=== PATIENT | male | born 1940 | race Caucasian/White ===

== ENCOUNTER 2018-01-14 13:17 | Emergency (ER) | payer BC, MEDICARE ==
[2018-01-14] MEDS ORDERED: KETOROLAC TROMETHAMINE INJ/PF 30 MG/1 ML SDV IV ONE (14:27)
[2018-01-14] MEDS ORDERED: ONDANSETRON HCL INJ/PF 4 MG/2 ML SDV IV ONE (14:27)
--- NOTE | 2018-01-14 14:28 | ER Document Report ---
ED General - General Chief Complaint: Flank Pain Stated Complaint: ABDOMINAL PAIN Time Seen by Provider: 01/14/18 14:12 Notes: 77-year-old male with history of kidney stones presents with right flank pain, nausea and vomiting. Sudden onset earlier today. Radiates down into the testicles. Had a 7 mm stone on the left recently removed. Denies any fever, chills, sweats. No significant other symptoms. Pain is located on the right flank and radiating down to the right lower abdomen. TRAVEL OUTSIDE OF THE [place] IN LAST 30 DAYS: No - HPI Onset: Just prior to arrival Onset/Duration: Sudden - Related Data Allergies/Adverse Reactions: metoprolol Allergy (Verified 01/14/18 13:25) moxifloxacin [From Avelox] Allergy (Verified 01/14/18 13:25) ofloxacin [From Floxin] Allergy (Verified 01/14/18 13:25) Quinolones Allergy (Verified 01/14/18 13:25) Sulfa (Sulfonamide Antibiotics) Allergy (Verified 01/14/18 13:25) sormotelol fumarate Allergy (Uncoded 01/14/18 13:25) Past Medical History - General Information source: Patient - Social History Smoking Status: Former Smoker Chew tobacco use (# tins/day): No Frequency of alcohol use: None Drug Abuse: None Lives with: Spouse/Significant other Family History: Reviewed & Not Pertinent Patient has suicidal ideation: No Patient has homicidal ideation: No Pulmonary Medical History: Reports: Hx COPD Endocrine Medical History: Reports: Hx Diabetes Mellitus Type 2 Renal/ Medical History: Denies: Hx Peritoneal Dialysis Past Surgical History: Reports: Hx Urinary Tract Surgery - prostate surgery Review of Systems - Review of Systems Constitutional: No symptoms reported EENT: No symptoms reported Cardiovascular: No symptoms reported Respiratory: Cough. denies: Short of breath, Wheezing Gastrointestinal: Abdominal pain, Nausea, Vomiting Genitourinary: See HPI, Flank pain. denies: Burning, Dysuria, Discharge Male Genitourinary: No symptoms reported Musculoskeletal: No symptoms reported Skin: No symptoms reported Hematologic/Lymphatic: No symptoms reported Neurological/Psychological: No symptoms reported Physical Exam - Vital signs Vitals: Temp Pulse Resp BP Pulse Ox 98.1 F 68 24 H 177/74 H 98 01/14/18 13:21 01/14/18 13:21 01/14/18 13:21 01/14/18 13:21 01/14/18 13:21 Interpretation: Normal - General General appearance: Appears well, Alert - HEENT Head: Normocephalic, Atraumatic Eyes: Normal Pupils: PERRL - Respiratory Respiratory status: No respiratory distress Chest status: Nontender Breath sounds: Normal Chest palpation: Normal - Cardiovascular Rhythm: Regular Heart sounds: Normal auscultation Murmur: No - Abdominal Inspection: Normal Distension: No distension Bowel sounds: Normal Tenderness: Nontender Organomegaly: No organomegaly - Back Back: Normal, CVA tenderness, Other - Mild CVA tenderness on the right - Extremities General upper extremity: Normal inspection, Nontender, Normal color, Normal ROM , Normal temperature General lower extremity: Normal inspection, Nontender, Normal color, Normal ROM , Normal temperature, Normal weight bearing. No: Enrique's sign - Neurological Neuro grossly intact: Yes Cognition: Normal Orientation: AAOx4 [place] Coma Scale Eye Opening: Spontaneous [place] Coma Scale Verbal: Oriented Paty Coma Scale Motor: Obeys Commands [place] Coma Scale Total: 15 Speech: Normal Motor strength normal: LUE, RUE, LLE, RLE Sensory: Normal - Psychological Associated symptoms: Normal affect, Normal mood - Skin Skin Temperature: Warm Skin Moisture: Dry Skin Color: Normal Course - Re-evaluation Re-evalutation: 01/14/18 14:47 Some patient's history could possibly be a kidney stone. Will get stat UA, blood work, Toradol, CT scan and reassess. 01/14/18 15:40 Patient with 2 obstructing stones on the right. Consulted with urologist Dr. Payne. Will follow as an outpatient if his creatinine is okay if not may need to go in and do an intervention this weekend. Will call the urologist back with the results of the creatinine 01/14/18 16:07 Spoke with a urologist. He will follow-up with the patient on Wednesday morning at 8:00 in the outpatient clinic. - Vital Signs Vital signs: Temp Pulse Resp BP Pulse Ox 98.1 F 75 18 135/88 H 99 01/14/18 13:21 01/14/18 15:36 01/14/18 15:36 01/14/18 15:36 01/14/18 15:36 - Laboratory Result Diagrams: 01/14/18 14:27 01/14/18 14:27 Laboratory results interpreted by me: 01/14/18 01/14/18 01/14/18 14:27 14:27 14:27 WBC 16.8 H RBC 4.33 L RDW 14.6 H Seg Neuts % (Manual) 86 H Lymphocytes % (Manual) 2 L Metamyelocytes % 1 H Myelocytes % 2 H Promyelocytes % 3 H Abs Neuts (Manual) 16.0 H Abs Lymphs (Manual) 0.3 L BUN 30 H Glucose 237 H Calcium 11.1 H Urine Protein 30 H Urine Glucose (UA) 50 H Urine Ketones TRACE H Urine Blood LARGE H Urine Ascorbic Acid 40 H Discharge - Discharge Clinical Impression: Ureterolithiasis Condition: Good Disposition: HOME, SELF-CARE Instructions: Kidney Stone ([facility]) Additional Instructions: Please call the urologist and make an appointment or show up at the office at 8: 00 on Wednesday morning. Continue with all current treatment. Continue with your antibiotics. Pain medication as needed. Prescriptions: Hydrocodone/Acetaminophen [[place] 5-325 mg Tablet] 1 tab PO TID PRN 4 Days #12 tablet PRN Reason: Pain Scale Of 3 Ondansetron HCl [Zofran 4 mg Tablet] 1 - 2 tab PO Q4H PRN #10 tablet PRN Reason: Tamsulosin HCl [Flomax 0.4 mg Cap.sr] 0.4 mg PO DAILY #7 cap.sr.24h Referrals: REGI PAYNE MD [SUN WIGGINS] - 01/17/18 8:00 am
[2018-01-14] MEDS ORDERED: FENTANYL CITRATE INJ/PF 100 MCG/2 ML AMPUL IV PRN (14:57)
[2018-01-14 15:07] LABS: HEMATOCRIT 41.6 % (37.9-51.0); HEMOGLOBIN 13.8 g/dL (13.5-17.0); MEAN CORPUSCULAR HEMOGLOBIN 31.8 pg (27.0-33.4); MEAN CORPUSCULAR VOLUME 96 fl (80-97); PLATELET COUNT 285 10^3/uL (150-450); RED BLOOD COUNT 4.33 10^6/uL (4.35-5.55); RED CELL DISTRIBUTION WIDTH 14.6 % (11.5-14.0); WHITE BLOOD COUNT 16.8 10^3/uL (4.0-10.5)
[2018-01-14 15:19] LABS: APPEARANCE,URINE CLOUDY; BILIRUBIN,URINE NEGATIVE (NEGATIVE); CALCIUM OXALATE CRYSTALS,URINE MODERATE /HPF; COLOR,URINE YELLOW; GLUCOSE, URINE 50 mg/dL (NEGATIVE); KETONES,URINE TRACE mg/dL (NEGATIVE); LEUKOCYTE ESTERASE,URINE NEGATIVE (NEGATIVE); NITRITE,URINE NEGATIVE (NEGATIVE); PROTEIN,URINE 30 mg/dL (NEGATIVE); URINE SPECIFIC GRAVITY 1.023; UROBILINOGEN,URINE NEGATIVE mg/dL (<2.0)
[2018-01-14] MEDS ORDERED: TAMSULOSIN HCL 0.4 MG CAP.SR.24H PO ONE (15:27)
--- NOTE | 2018-01-14 15:29 | RADIOLOGY REPORT (SQ) ---
EXAM DESCRIPTION: CT ABD/PELVIS NO ORAL OR IV COMPLETED DATE/TIME: 01/14/2018 3:11 pm REASON FOR STUDY: right flank pain COMPARISON: None. TECHNIQUE: CT scan of the abdomen and pelvis performed without intravenous or oral contrast. Images reviewed with lung, soft tissue, and bone windows. Reconstructed coronal and sagittal MPR images revi ewed. All images stored on PACS. All CT scanners at this facility use dose modulation, iterative reconstruction, and/or weight based d osing when appropriate to reduce radiation dose to as low as reasonably achievable (ALARA). [facility]: Dose Right [facility]: CareDose [facility]: Dose Right [facility]: Teradose 4D [facility]: Smart [employer] Network RADIATION DOSE: CT Rad equipment meets quality standard of care and radiation dose reduction techniq ues were employed. CTDIvol: 8.2 mGy. DLP: 461 mGy-cm.mGy. LIMITATIONS: None. FINDINGS: LOWER CHEST: No significant findings. No nodules or infiltrates. NON-CONTRASTED LIVER, SPLEEN, ADRENALS: Evaluation limited by lack of IV contrast. No identified sign ificant masses. PANCREAS: No masses. No peripancreatic inflammatory changes. GALLBLADDER: No identified stones by CT criteria. No inflammatory changes to suggest cholecystitis. RIGHT KIDNEY AND URETER: No suspicious masses. Assessment limited by lack of IV contrast. Tiny nono bstructing renal calculi are identified. Obstructing 6 mm in diameter calculus is identified in the proximal right ureter best seen on image number 45. A 2nd obstructing calculus is identified just pr oximal to the uterovesical junction best seen on image number 83 measuring 3.6 mm in diameters. Ther e is hydronephrosis of the right kidney and dilatation of the right ureter proximal to the level of t he obstructing calculus. LEFT KIDNEY AND URETER: No suspicious masses. Assessment limited by lack of IV contrast. Tiny nonob structing left renal calculi are identified. No hydronephrosis or hydroureter. AORTA AND RETROPERITONEUM: No aneurysm. No retroperitoneal masses or adenopathy. BOWEL AND PERITONEAL CAVITY: No obvious masses or inflammatory changes. No free fluid. APPENDIX: Normal. PELVIS, BLADDER, AND ABDOMINAL WALL:No abnormal masses. No free fluid. Bladder normal. Multiple surg ical clips are identified presumably related to a prostatectomy. BONES: No significant findings. OTHER: No other significant finding. IMPRESSION: Proximal and distal obstructing calculi on the right as noted above. Tiny bilateral non obstructing renal calculi are identified. Other findings as noted above COMMENT: Quality ID # [id number]: Final reports with documentation of one or more dose reduction techniques (e.g., Automated exposure control, adjustment of the mA and/or kV according to patient size, use of iterative reconstruction technique) TECHNICAL DOCUMENTATION: JOB ID: [id number] [employer]- All Rights Reserved Reading location - IP/workstation name: [email or web address] [id number]
[2018-01-14 15:30] LABS: ABSOLUTE LYMPHOCYTES# (MANUAL) 0.3 10^3/uL (0.5-4.7); ABSOLUTE MONOCYTES # (MANUAL) 0.5 10^3/uL (0.1-1.4); BAND NEUTROPHILS % (MANUAL) 3 % (3-5); BASOPHILS % (MANUAL) 0 % (0-2); EOSINOPHILS % (MANUAL) 0 % (0-6); LYMPHOCYTES % (MANUAL) 2 % (13-45); METAMYELOCYTES % (MANUAL) 1 % (0); MONOCYTES % (MANUAL) 3 % (3-13); MYELOCYTES % (MANUAL) 2 % (0); PROMYELOCYTES % (MANUAL) 3 % (0); SEGMENTED NEUTROPHILS % (MAN) 86 % (42-78); TOTAL CELLS COUNTED 100
[2018-01-14 15:31] LABS: ANISOCYTOSIS SLIGHT; OVALOCYTES SLIGHT; PLATELET COMMENT ADEQUATE; POIKILOCYTOSIS SLIGHT; POLYCHROMASIA SLIGHT
[2018-01-14 15:38] VITALS: BP 135/88
[2018-01-14 15:50] LABS: ALANINE AMINOTRANSFERASE 32 U/L (21-72); ALBUMIN 4.2 g/dL (3.5-5.0); ALKALINE PHOSPHATASE 70 U/L (38-126); ANION GAP 13 (5-19); ASPARTATE AMINO TRANSFERASE 23 U/L (17-59); BILIRUBIN,DIRECT 0.4 mg/dL (0.0-0.4); BILIRUBIN,TOTAL 0.5 mg/dL (0.2-1.3); BLOOD UREA NITROGEN 30 mg/dL (7-20); CALCIUM 11.1 mg/dL (8.4-10.2); CARBON DIOXIDE 24 mmol/L (22-30); CHLORIDE 102 mmol/L (98-107); GLUCOSE 237 mg/dL (75-110); LIPASE 245.2 U/L (23-300); SODIUM 138.8 mmol/L (137-145); TOTAL PROTEIN 6.6 g/dL (6.3-8.2)
[2018-01-18 08:20] LABS: PATH REVIEW PATHOLOGIST REVIEWED
== END 2018-01-14 16:11 | disposition home or self-care (01) ==
LOC: EDSEX 13:17 → EDBD 13:17 → ER 13:17
DX: N20.1 Calculus of ureter (principal); R10.9 Unspecified abdominal pain; R11.2 Nausea with vomiting, unspecified; J44.9 Chronic obstructive pulmonary disease, unspecified; E11.9 Type 2 diabetes mellitus without complications; Z87.442 Personal history of urinary calculi; Z88.2 Allergy status to sulfonamides; Z88.3 Allergy status to other anti-infective agents
CPT/HCPCS: 99284; 96374; 96375; 36415; 83690; 85025; 80053; 81001; 74176; J3010; J1885; A9270; J2405

== ENCOUNTER 2019-01-12 14:02 | Emergency (ER) | payer MEDICARE ==
--- NOTE | 2019-01-12 15:13 | ER Document Report ---
ED Medical Screen (RME) - General Mode of Arrival: Ambulatory Information source: Patient TRAVEL OUTSIDE OF THE [place] IN LAST 30 DAYS: No <RASHEED MARTINES - Last Filed: 01/12/19 15:13> <JHON BROWN - Last Filed: 01/12/19 17:40> - General Chief Complaint: Weakness Stated Complaint: WEAKNESS Time Seen by Provider: 01/12/19 15:08 Notes: Patient is an 78-year-old male with a history of COPD, high cholesterol, congestive heart failure, type 2 diabetes who presents to the emergency department for generalized weakness. at the bedside states that they are visiting from [place] and patient has had generalized weakness and fatigue for the past 2 weeks. The patient does have history of anemia 1 year ago where he required iron and blood transfusion. states that at that time they were unable to find the source of bleeding. Patient has denied rectal bleeding or dark stools. Patient states that he has had diarrhea a few times per week but this is not new as he was told he had GI issues in the past. Patient has a decreased appetite. He did call his primary care physician in [place] earlier today who recommended he go to the emergency department for further evaluation. (JHON BROWN) - Related Data Allergies/Adverse Reactions: metoprolol Allergy (Verified 01/12/19 14:03) moxifloxacin [From Avelox] Allergy (Verified 01/12/19 14:03) ofloxacin [From Floxin] Allergy (Verified 01/12/19 14:03) Quinolones Allergy (Verified 01/12/19 14:03) Sulfa (Sulfonamide Antibiotics) Allergy (Verified 01/12/19 14:03) sormotelol fumarate Allergy (Uncoded 01/12/19 14:03) Past Medical History Pulmonary Medical History: Reports: Hx COPD Endocrine Medical History: Reports: Hx Diabetes Mellitus Type 2 Renal/ Medical History: Denies: Hx Peritoneal Dialysis Past Surgical History: Reports: Hx Urinary Tract Surgery - prostate surgery <RASHEED MARTINES - Last Filed: 01/12/19 15:13> - General Information source: Patient - Social History Cigarette use (# per day): No Chew tobacco use (# tins/day): No Frequency of alcohol use: None Drug Abuse: None Lives with: Spouse/Significant other Family history: None - Past Medical History Cardiac Medical History: Reports: Hx Atrial Fibrillation, Hx Congestive Heart Failure, Hx Hypercholesterolemia Pulmonary Medical History: Reports: Hx COPD EENT Medical History: Reports: None Neurological Medical History: Reports: None Renal/ Medical History: Reports: None Malignancy Medical History: Reports None GI Medical History: Reports: Other - Diarrhea Musculoskeltal Medical History: Reports None Skin Medical History: Reports None Psychiatric Medical History: Reports: None Traumatic Medical History: Reports: None Infectious Medical History: Reports: None <JHON BROWN - Last Filed: 01/12/19 17:40> Review of Systems - Review of Systems Constitutional: See HPI EENT: No symptoms reported Cardiovascular: No symptoms reported Respiratory: No symptoms reported Gastrointestinal: See HPI Genitourinary: No symptoms reported Male Genitourinary: No symptoms reported Musculoskeletal: No symptoms reported Skin: No symptoms reported Hematologic/Lymphatic: No symptoms reported Neurological/Psychological: No symptoms reported <JHON BROWN - Last Filed: 01/12/19 17:40> Physical Exam - Vital signs Interpretation: Hypertensive, Tachycardic <JHON BROWN - Last Filed: 01/12/19 17:40> - Vital signs Vitals: Temp Pulse Resp BP Pulse Ox 98.6 F 114 H 22 H 150/57 H 94 01/12/19 14:07 01/12/19 14:07 01/12/19 14:07 01/12/19 14:07 01/12/19 14:07 - Notes Notes: GENERAL: Well-appearing, well-nourished and in no acute distress. HEAD: Atraumatic, normocephalic. EYES: Pupils equal round and reactive to light, extraocular movements intact, sclera anicteric, conjunctiva are normal. ENT: Nares patent, oropharynx clear without exudates. Moist mucous membranes. NECK: Normal range of motion, supple without lymphadenopathy or JVD. LUNGS: Breath sounds clear to auscultation bilaterally and equal. No wheezes rales or rhonchi. HEART: Regular rate and rhythm without murmurs, rubs or gallops. ABDOMEN: Soft, round, nontender, hyperactive bowel sounds. No guarding, no rebound. No masses appreciated. BACK: No cervical, thoracic, lumbar midline tenderness. No saddle anesthesia, normal distal neurovascular exam. GENITOURINARY: Deferred. EXTREMITIES: Normal range of motion, no pitting or edema. No clubbing or cyanosis. NEUROLOGICAL: Cranial nerves II through XII grossly intact. Normal speech, normal gait. PSYCH: Normal mood, normal affect. SKIN: Warm, Dry, normal turgor, no rashes or lesions noted. (JHON BROWN) Course - Laboratory Result Diagrams: 01/12/19 15:24 01/12/19 15:24 <JHON BROWN - Last Filed: 01/12/19 17:40> - Re-evaluation Re-evalutation: 01/12/19 17:32 Upon evaluation patient is resting comfortably on stretcher, no acute distress. Informed the patient and family that his blood glucose is in the 500's. He states that he has been taking his Metformin and Glipizide as prescribed and two days ago his blood sugar was in the 100's. Will obtain additional lab work including venous blood gas and urinalysis. Will give IVF's slowly. (JHON BROWN) - Vital Signs Vital signs: Temp Pulse Resp BP Pulse Ox 98.6 F 114 H 22 H 150/57 H 94 01/12/19 14:07 01/12/19 14:07 01/12/19 14:07 01/12/19 14:07 01/12/19 14:07 - Laboratory Laboratory results interpreted by me: 01/12/19 01/12/19 15:24 15:24 RBC 3.92 L Hgb 11.9 L Hct 36.1 L RDW 14.9 H Plt Count 141 L Band Neutrophils % 2 L Metamyelocytes % 1 H Myelocytes % 2 H Sodium 133.2 L Chloride 95 L Est GFR (Non-Af Amer) 58 L Glucose 508 H* Total Protein 5.9 L 01/12/19 17:34 Glucose elevated. Corrected Sodium with hyperglycemia is 140. (JHON DIOP)
--- NOTE | 2019-01-12 15:49 | RADIOLOGY REPORT (SQ) ---
EXAM DESCRIPTION: CHEST SINGLE VIEW COMPLETED DATE/TIME: 01/12/2019 3:40 pm REASON FOR STUDY: fatigue, shortness of breath COMPARISON: None. EXAM PARAMETERS: NUMBER OF VIEWS: One view. TECHNIQUE: Single frontal radiographic view of the chest acquired. RADIATION DOSE: NA LIMITATIONS: None. FINDINGS: LUNGS AND PLEURA: No opacities, masses or pneumothorax. No pleural effusion. MEDIASTINUM AND HILAR STRUCTURES: No masses. Contour normal. HEART AND VASCULAR STRUCTURES: Heart normal in size. Normal vasculature. BONES: No acute findings. HARDWARE: None in the chest. OTHER: No other significant finding. IMPRESSION: No acute abnormality of the lungs in frontal projection. TECHNICAL DOCUMENTATION: JOB ID: [id number] [employer]- All Rights Reserved Reading location - IP/workstation name: [email or web address]
[2019-01-12 15:54] LABS: HEMATOCRIT 36.1 % (37.9-51.0); HEMOGLOBIN 11.9 g/dL (13.5-17.0); MEAN CORPUSCULAR HEMOGLOBIN 30.2 pg (27.0-33.4); MEAN CORPUSCULAR HGB CONC 32.9 g/dL (32.0-36.0); MEAN CORPUSCULAR VOLUME 92 fl (80-97); PLATELET COUNT 141 10^3/uL (150-450); RED BLOOD COUNT 3.92 10^6/uL (4.35-5.55); RED CELL DISTRIBUTION WIDTH 14.9 % (11.5-14.0)
[2019-01-12 16:13] LABS: ALANINE AMINOTRANSFERASE 65 U/L (21-72); ALBUMIN 3.5 g/dL (3.5-5.0); ALKALINE PHOSPHATASE 84 U/L (38-126); ANION GAP 12 (5-19); ASPARTATE AMINO TRANSFERASE 28 U/L (17-59); BILIRUBIN,DIRECT 0.3 mg/dL (0.0-0.4); BILIRUBIN,TOTAL 0.6 mg/dL (0.2-1.3); BLOOD UREA NITROGEN 13 mg/dL (7-20); CALCIUM 9.5 mg/dL (8.4-10.2); CARBON DIOXIDE 26 mmol/L (22-30); CHLORIDE 95 mmol/L (98-107); POTASSIUM 3.9 mmol/L (3.6-5.0); SODIUM 133.2 mmol/L (137-145); TOTAL PROTEIN 5.9 g/dL (6.3-8.2)
[2019-01-12 16:21] LABS: GLUCOSE 508 mg/dL (75-110)
[2019-01-12 16:24] LABS: ABSOLUTE LYMPHOCYTES# (MANUAL) 1.1 10^3/uL (0.5-4.7); ABSOLUTE MONOCYTES # (MANUAL) 0.4 10^3/uL (0.1-1.4); ABSOLUTE NEUTROPHILS# (MANUAL) 6.4 10^3/uL (1.7-8.2); BAND NEUTROPHILS % (MANUAL) 2 % (3-5); BASOPHILS % (MANUAL) 1 % (0-2); EOSINOPHILS % (MANUAL) 0 % (0-6); LYMPHOCYTES % (MANUAL) 14 % (13-45); METAMYELOCYTES % (MANUAL) 1 % (0); MONOCYTES % (MANUAL) 5 % (3-13); SEGMENTED NEUTROPHILS % (MAN) 75 % (42-78); TOTAL CELLS COUNTED 100
[2019-01-12 16:25] LABS: PLATELET COMMENT DECREASED
[2019-01-12 16:27] LABS: TOXIC GRANULATION SLIGHT
[2019-01-12 16:29] LABS: ANISOCYTOSIS SLIGHT; POLYCHROMASIA SLIGHT; STOMATOCYTES 1+
[2019-01-12 16:30] LABS: MYELOCYTES % (MANUAL) 2 % (0)
--- NOTE | 2019-01-12 16:51 | EKG REPORT ---
SEVERITY:- ABNORMAL ECG - SINUS RHYTHM RIGHT BUNDLE BRANCH BLOCK LAFB : Confirmed by: Nacho Morton MD 12-Jan-2019 16:51:14
[2019-01-12] MEDS ORDERED: NORMAL SALINE 1000 ML 1,000 ML IV ONE ×2 (17:21→19:32)
[2019-01-12 18:05] LABS: VENOUS BLOOD BASE EXCESS 3.8 mmol/L; VENOUS BLOOD HCO3 28.7 mmol/L (20-32); VENOUS BLOOD PCO2 44.7 mmHg (35-63); VENOUS BLOOD PH 7.43 (7.30-7.42)
--- NOTE | 2019-01-12 18:32 | ER Document Report ---
ED General - General Mode of Arrival: Ambulatory TRAVEL OUTSIDE OF THE [place]. IN LAST 30 DAYS: No <JHON BROWN - Last Filed: 01/12/19 20:17> <IZABELAYUSHCHRIS - Last Filed: 01/12/19 23:57> - General Chief Complaint: Weakness Stated Complaint: WEAKNESS Time Seen by Provider: 01/12/19 15:08 Notes: Patient is an 78-year-old male with a history of COPD, high cholesterol, congestive heart failure, type 2 diabetes who presents to the emergency department for generalized weakness. at the bedside states that they are visiting from [place] and patient has had generalized weakness and fatigue for the past 2 weeks. The patient does have history of anemia 1 year ago where he required iron and blood transfusion. states that at that time they were unable to find the source of bleeding. Patient has denied rectal bleeding or dark stools. Patient states that he has had diarrhea a few times per week but this is not new as he was told he had GI issues in the past. Patient has a decreased appetite. He did call his primary care physician in [place] earlier today who recommended he go to the emergency department for further evaluation. (JHON BROWN) - Related Data Allergies/Adverse Reactions: metoprolol Allergy (Verified 01/12/19 14:03) moxifloxacin [From Avelox] Allergy (Verified 01/12/19 14:03) ofloxacin [From Floxin] Allergy (Verified 01/12/19 14:03) Quinolones Allergy (Verified 01/12/19 14:03) Sulfa (Sulfonamide Antibiotics) Allergy (Verified 01/12/19 14:03) sormotelol fumarate Allergy (Uncoded 01/12/19 14:03) Past Medical History - General Information source: Patient - Social History Smoking Status: Unknown if Ever Smoked Cigarette use (# per day): No Chew tobacco use (# tins/day): No Frequency of alcohol use: None Drug Abuse: None Lives with: Spouse/Significant other Family History: Reviewed & Not Pertinent Patient has suicidal ideation: No Patient has homicidal ideation: No - Past Medical History Cardiac Medical History: Reports: Hx Atrial Fibrillation, Hx Congestive Heart Failure, Hx Hypercholesterolemia Pulmonary Medical History: Reports: Hx COPD EENT Medical History: Reports: None Neurological Medical History: Reports: None Endocrine Medical History: Reports: Hx Diabetes Mellitus Type 2 Renal/ Medical History: Reports: None. Denies: Hx Peritoneal Dialysis Malignancy Medical History: Reports None GI Medical History: Reports: Other - Diarrhea Musculoskeletal Medical History: Reports None Skin Medical History: Reports None Psychiatric Medical History: Reports: None Traumatic Medical History: Reports: None Infectious Medical History: Reports: None Past Surgical History: Reports: Hx Urinary Tract Surgery - prostate surgery <JHON BROWN - Last Filed: 01/12/19 20:17> Physical Exam <JHNO BROWN - Last Filed: 01/12/19 20:17> - Vital signs Vitals: Temp Pulse Resp BP Pulse Ox 98.6 F 114 H 22 H 150/57 H 94 01/12/19 14:07 01/12/19 14:07 01/12/19 14:07 01/12/19 14:07 01/12/19 14:07 - Notes Notes: GENERAL: Well-appearing, well-nourished and in no acute distress. HEAD: Atraumatic, normocephalic. EYES: Pupils equal round and reactive to light, extraocular movements intact, sclera anicteric, conjunctiva are normal. ENT: Nares patent, oropharynx clear without exudates. Moist mucous membranes. NECK: Normal range of motion, supple without lymphadenopathy or JVD. LUNGS: Breath sounds clear to auscultation bilaterally and equal. No wheezes rales or rhonchi. HEART: Regular rate and rhythm without murmurs, rubs or gallops. ABDOMEN: Soft, round, nontender, hyperactive bowel sounds. No guarding, no rebound. No masses appreciated. BACK: No cervical, thoracic, lumbar midline tenderness. No saddle anesthesia, normal distal neurovascular exam. GENITOURINARY: Deferred. EXTREMITIES: Normal range of motion, no pitting or edema. No clubbing or cyanosis. NEUROLOGICAL: Cranial nerves II through XII grossly intact. Normal speech, normal gait. PSYCH: Normal mood, normal affect. SKIN: Warm, Dry, normal turgor, no rashes or lesions noted. (JHON BROWN) Course - Laboratory Result Diagrams: 01/12/19 15:24 01/12/19 15:24 <JHON BROWN - Last Filed: 01/12/19 20:17> - Laboratory Result Diagrams: 01/12/19 15:24 01/12/19 15:24 <CHRIS WELLS - Last Filed: 01/12/19 23:57> - Re-evaluation Re-evalutation: 01/12/19 18:00 Upon evaluation patient is resting comfortably on stretcher, no acute distress. Informed the patient and family that his blood glucose is in the 500's. He states that he has been taking his Metformin and Glipizide as prescribed and two days ago his blood sugar was in the 100's. Will obtain additional lab work including venous blood gas and urinalysis. Will give IVF's. 18:30 Assisted patient to restroom. Urinated without difficulty. 01/12/19 18:46 Repeat blood glucose 463. Did discuss patient case with Dr. Luis who recommends giving two liters of NS and to evaluate after each bolus due to CHF. Will repeat glucose after second liter. states that patient does take 10 mg Prednisone daily for his COPD, he did finish a taper dose one week ago but reports that his blood sugars have been running in the high 100's and has not gone above 200. 01/12/19 19:47 Patient resting comfortably, lungs remains CTA bilaterally, denies shortness of breath. Patient stating that he is ready to go home. Will initiate second liter and recheck blood glucose. 01/12/19 20:17 Bedside report given to Chris Wells PA-C, patient is resting comfortably on stretcher, denies pain, no discharge at this time. 2nd liter of NS running, will recheck glucose after. (JHON RBOWN) 01/12/19 Blood glucose is still downtrending, now in the 340s. Patient has had 2 bags of IV fluids, he is sitting on the edge of the bed, requesting to leave. He looks well. Repeat vital signs are unremarkable. He states he has no symptoms. I did discuss the results with Dr. Luis, patient will be discharged with follow- up instructions and strict return precautions. Patient states satisfaction and agreement with plan. (CHRIS WELLS) - Vital Signs Vital signs: Temp Pulse Resp BP Pulse Ox 98.5 F 83 22 H 95/42 L 97 01/12/19 21:22 01/12/19 21:22 01/12/19 14:07 01/12/19 21:22 01/12/19 21:22 - Laboratory Laboratory results interpreted by me: 01/12/19 01/12/19 01/12/19 15:24 15:24 17:55 RBC 3.92 L Hgb 11.9 L Hct 36.1 L RDW 14.9 H Plt Count 141 L Band Neutrophils % 2 L Metamyelocytes % 1 H Myelocytes % 2 H VBG pH 7.43 H Sodium 133.2 L Chloride 95 L Est GFR (Non-Af Amer) 58 L Glucose 508 H* POC Glucose Total Protein 5.9 L Urine Glucose (UA) 01/12/19 01/12/19 01/12/19 18:02 18:45 19:03 RBC Hgb Hct RDW Plt Count Band Neutrophils % Metamyelocytes % Myelocytes % VBG pH Sodium Chloride Est GFR (Non-Af Amer) Glucose POC Glucose 463 H* 396 H Total Protein Urine Glucose (UA) >=500 H 01/12/19 20:58 RBC Hgb Hct RDW Plt Count Band Neutrophils % Metamyelocytes % Myelocytes % VBG pH Sodium Chloride Est GFR (Non-Af Amer) Glucose POC Glucose 344 H Total Protein Urine Glucose (UA) 01/12/19 18:34 Glucose noted at 508. Hyperglycemia corrected sodium 140. (JHON BROWN) - EKG Interpretation by Me Additional EKG results interpreted by me: 01/12/19 20:22 Patient's EKG shows a sinus rhythm with a rate of 91. Patient does have a right bundle branch block, QTC 517, no ST segment changes in consecutive leads. (JHON BROWN) Discharge <JHON BROWN - Last Filed: 01/12/19 20:17> <CHRIS WELLS - Last Filed: 01/12/19 23:57> - Discharge Clinical Impression: Hyperglycemia without ketosis Condition: Stable Disposition: HOME, SELF-CARE Additional Instructions: Today you were seen in the emergency department for generalized weakness. Your lab work did reveal an elevated blood sugar in the 500's. We have given you IV fluids which have improved your symptoms. Please continue your oral diabetes medications and monitor your blood sugars regularly. Follow up with your primary care physician when you return to [place] as you may need an adjustment in your medications. Keep a blood sugar diary at home so you can show your doctor the readings. Please return to the emergency department for worsening signs or symptoms to include dizziness, chest pain, palpitations, passing out, fever, vomiting, abdominal pain or any other concerning signs or symptoms. Hyperglycemia (High Blood Sugar) You have an abnormally high blood sugar. Not all high blood sugar requires long-term treatment. High blood sugar can be due to medications, , or the stress of illness. (These cases are "borderline diabetes.") If the doctor feels your high blood sugar might resolve with time, you may not require treatment now. You will be scheduled for further evaluation. It's very important that you follow through, to see if the blood sugar returns to normal levels. Uncontrolled high blood sugar leads to early heart disease, strokes, nerve damage, eye damage, and kidney damage. Call the physician if there is faintness, excess sleepiness, or very rapid breathing.
[2019-01-12 19:19] LABS: APPEARANCE,URINE CLEAR; BILIRUBIN,URINE NEGATIVE (NEGATIVE); COLOR,URINE YELLOW; GLUCOSE, URINE >=500 mg/dL (NEGATIVE); KETONES,URINE NEGATIVE (NEGATIVE); LEUKOCYTE ESTERASE,URINE NEGATIVE (NEGATIVE); NITRITE,URINE NEGATIVE (NEGATIVE); PROTEIN,URINE NEGATIVE (NEGATIVE); UROBILINOGEN,URINE NEGATIVE mg/dL (<2.0)
[2019-01-12 21:28] VITALS: BP 95/42
[2019-01-13 10:31] LABS: PATH REVIEW PATHOLOGIST REVIEWED
== END 2019-01-12 21:28 | disposition home or self-care (01) ==
LOC: ER 14:02
DX: E11.65 Type 2 diabetes mellitus with hyperglycemia (principal); R53.1 Weakness; J44.9 Chronic obstructive pulmonary disease, unspecified; E78.00 Pure hypercholesterolemia, unspecified; I50.9 Heart failure, unspecified; I48.91 Unspecified atrial fibrillation; Z88.2 Allergy status to sulfonamides; Z88.3 Allergy status to other anti-infective agents
CPT/HCPCS: 93005; 99285; 86900; 86901; 36415; 86850; 82962; 85025; 80053; 81001; 82803; 83880; 71045; 93010; J7030

== ENCOUNTER 2019-01-30 16:40 | Observation (INO) | payer MEDICARE ==
[2019-01-30] MEDS ORDERED: NORMAL SALINE 1000 ML 1,000 ML IV ONE (16:51)
[2019-01-30] MEDS ORDERED: ACETAMINOPHEN 325 MG TABLET PO ONE (17:16)
--- NOTE | 2019-01-30 17:16 | ER Document Report ---
ED General - General Chief Complaint: Altered Mental Status Stated Complaint: ALTERED MENTAL STATUS Time Seen by Provider: 01/30/19 16:51 TRAVEL OUTSIDE OF THE [place] IN LAST 30 DAYS: No - HPI Notes: Patient is a 78-year-old male that presents to the emergency department for chief complaint of altered mental status and fever. Patient's states that around noon today he started to complain of feeling ill. Patient was less responsive and appeared more tired. Patient's said that he seemed to be getting more confused. Patient was found to have a fever by EMS. He has not had any medication today for his fever. Patient's states he has been out of the hospital for about a week since an admission at [facility] for hyperglycemia. She states he was given an antibiotic and prednisone for his COPD. He is not currently on antibiotics but does take 10 mg of prednisone daily. Patient was reportedly normal yesterday and this morning. He denies any chest pain but does state that he is coughing. He denies any abdominal pain or diarrhea. Patient had one episode of emesis with EMS but de nies current nausea. He denies any change in urinary habits. Patient's states that they have been in town since December and were planning on returning home to [place] today. All of patient's doctors are back in [place]. Past Medical History: COPD, diabetes, hyperlipidemia Past Surgical History: Reviewed in chart Social History: Denies tobacco and alcohol use Family History: Reviewed and noncontributory for presenting illness Allergies: Reviewed, see documented allergy list. REVIEW OF SYSTEMS: CONSTITUTIONAL : fever chills No diaphoresis No recent illness EENT: No vision changes No congestion No sore throat CARDIOVASCULAR: No chest pain No palpitations RESPIRATORY: No shortness of breath cough No difficulty breathing GASTROINTESTINAL: No abdominal pain No nausea No vomiting No diarrhea GENITOURINARY: No dysuria No hematuria No difficulty urinating MUSCULOSKELETAL: No back pain No leg pain No arm pain SKIN: No rashes No lesions LYMPHATIC: No swollen, enlarged glands. NEUROLOGICAL: No lightheadedness No headache No weakness No paresthesias confusion PSYCHIATRIC: No anxiety No depression PHYSICAL EXAMINATION: Vital signs reviewed, nursing noted reviewed. GENERAL: Somnolent, ill-appearing, well-nourished HEAD: Atraumatic, normocephalic. EYES: Eyes appear normal, extraocular movements intact, sclera anicteric, conjunctiva are normal. ENT: nares patent, oropharynx clear without exudates. Dry mucous membranes. NECK: Normal range of motion, supple without lymphadenopathy LUNGS: Breath sounds clear to auscultation bilaterally and equal. No wheezes rales or rhonchi. HEART: Tachycardic rate and regular rhythm. systolic murmur. +2 pretibial pitting edema bilaterally ABDOMEN: Soft, nontender, normoactive bowel sounds. No rebound, guarding, or rigidity. No masses appreciated. EXTREMITIES: Nontender, good range of motion, and symmetric NEUROLOGICAL: Oriented to person, place, and situation. Disoriented to time. Moves all extremities spontaneously Motor and sensory grossly intact on exam. PSYCH: Normal mood, normal affect. SKIN: Warm, Dry, normal turgor, no rashes or lesions noted on exposed skin - Related Data Allergies/Adverse Reactions: metoprolol Allergy (Verified 01/12/19 14:03) moxifloxacin [From Avelox] Allergy (Verified 01/12/19 14:03) ofloxacin [From Floxin] Allergy (Verified 01/12/19 14:03) Quinolones Allergy (Verified 01/12/19 14:03) Sulfa (Sulfonamide Antibiotics) Allergy (Verified 01/12/19 14:03) sormotelol fumarate Allergy (Uncoded 01/12/19 14:03) Past Medical History - Social History Smoking Status: Never Smoker Family History: Reviewed & Not Pertinent - Past Medical History Cardiac Medical History: Reports: Hx Atrial Fibrillation, Hx Congestive Heart Failure, Hx Hypercholesterolemia Pulmonary Medical History: Reports: Hx COPD Endocrine Medical History: Reports: Hx Diabetes Mellitus Type 2 Renal/ Medical History: Denies: Hx Peritoneal Dialysis Past Surgical History: Reports: Hx Urinary Tract Surgery - prostate surgery Physical Exam - Vital signs Vitals: Pulse Ox 92 01/30/19 16:49 Course - Re-evaluation Re-evalutation: 01/30/19 18:00 Patient's lab work does show a leukocytosis and elevated lactate at 2.1. His urinalysis and chest x-ray are negative for acute infection. patient was hypoglycemic at presentation and has tolerated drinking orange juice. His confusion has improved since improving his hypoglycemia. Patient source of infection is not currently identified. He has an abdominal exam that is benign with no focal tenderness. He has not had any diarrhea and only had one episode of emesis while in transit with EMS. Patient was given broad-spectrum antibiotics. He did receive 1 L of IV fluids. He has a history of congestive heart failure and aggressive hydration will be performed as tolerated with patient's respiratory status. He does have a heart murmur but is unclear if this is new or chronic for this patient. Blood cultures have been obtained. Urine culture has been ordered. Patient will be admitted to the hospital for further medical management. Care discussed with Dr. Rader who accepts admission. Laboratory 01/30/19 01/30/19 01/30/19 17:02 17:02 17:02 WBC 12.7 H RBC 3.61 L Hgb 10.8 L Hct 32.8 L MCV 91 MCH 30.0 MCHC 33.0 RDW 16.3 H Plt Count 175 Seg Neutrophils % 63.8 Lymphocytes % 26.0 Monocytes % 9.1 Eosinophils % 0.2 Basophils % 0.9 Absolute Neutrophils 8.1 Absolute Lymphocytes 3.3 Absolute Monocytes 1.2 Absolute Eosinophils 0.0 Absolute Basophils 0.1 PT 13.1 INR 0.94 VBG pH VBG pCO2 VBG HCO3 VBG Base Excess Sodium 136.4 L Potassium 3.3 L Chloride 103 Carbon Dioxide 28 Anion Gap 5 BUN 13 Creatinine 0.92 Est GFR ( Amer) > 60 Est GFR (Non-Af Amer) > 60 Glucose 56 L POC Glucose Lactic Acid Calcium 7.9 L Total Bilirubin 0.4 Direct Bilirubin 0.2 Neonat Total Bilirubin Not Reportable Neonat Direct Bilirubin Not Reportable Neonat Indirect Bili Not Reportable AST 26 ALT 41 Alkaline Phosphatase 70 Total Protein 5.2 L Albumin 2.8 L Urine Color Urine Appearance Urine pH Ur Specific Kinde Urine Protein Urine Glucose (UA) Urine Ketones Urine Blood Urine Nitrite Urine Bilirubin Urine Urobilinogen Ur Leukocyte Esterase Urine WBC (Auto) Urine RBC (Auto) U Hyaline Cast (Auto) Squamous Epi Cells Auto Urine Mucus (Auto) Urine Ascorbic Acid 01/30/19 01/30/19 01/30/19 17:02 17:02 17:12 WBC RBC Hgb Hct MCV MCH MCHC RDW Plt Count Seg Neutrophils % Lymphocytes % Monocytes % Eosinophils % Basophils % Absolute Neutrophils Absolute Lymphocytes Absolute Monocytes Absolute Eosinophils Absolute Basophils PT INR VBG pH 7.53 H VBG pCO2 33.2 L VBG HCO3 27.1 VBG Base Excess 4.6 Sodium Potassium Chloride Carbon Dioxide Anion Gap BUN Creatinine Est GFR ( Amer) Est GFR (Non-Af Amer) Glucose POC Glucose Lactic Acid 2.1 Calcium Total Bilirubin Direct Bilirubin Neonat Total Bilirubin Neonat Direct Bilirubin Neonat Indirect Bili AST ALT Alkaline Phosphatase Total Protein Albumin Urine Color YELLOW Urine Appearance CLEAR Urine pH 6.0 Ur Specific Kinde 1.010 Urine Protein NEGATIVE Urine Glucose (UA) NEGATIVE Urine Ketones NEGATIVE Urine Blood NEGATIVE Urine Nitrite NEGATIVE Urine Bilirubin NEGATIVE Urine Urobilinogen NEGATIVE Ur Leukocyte Esterase NEGATIVE Urine WBC (Auto) 1 Urine RBC (Auto) 1 U Hyaline Cast (Auto) 1 Squamous Epi Cells Auto <1 Urine Mucus (Auto) RARE Urine Ascorbic Acid NEGATIVE 01/30/19 17:46 WBC RBC Hgb Hct MCV MCH MCHC RDW Plt Count Seg Neutrophils % Lymphocytes % Monocytes % Eosinophils % Basophils % Absolute Neutrophils Absolute Lymphocytes Absolute Monocytes Absolute Eosinophils Absolute Basophils PT INR VBG pH VBG pCO2 VBG HCO3 VBG Base Excess Sodium Potassium Chloride Carbon Dioxide Anion Gap BUN Creatinine Est GFR ( Amer) Est GFR (Non-Af Amer) Glucose POC Glucose 62 L Lactic Acid Calcium Total Bilirubin Direct Bilirubin Neonat Total Bilirubin Neonat Direct Bilirubin Neonat Indirect Bili AST ALT Alkaline Phosphatase Total Protein Albumin Urine Color Urine Appearance Urine pH Ur Specific Kinde Urine Protein Urine Glucose (UA) Urine Ketones Urine Blood Urine Nitrite Urine Bilirubin Urine Urobilinogen Ur Leukocyte Esterase Urine WBC (Auto) Urine RBC (Auto) U Hyaline Cast (Auto) Squamous Epi Cells Auto Urine Mucus (Auto) Urine Ascorbic Acid Chest X-Ray 01/30/19 16:51 IMPRESSION: NO ACUTE FINDINGS. - Vital Signs Vital signs: Temp Pulse Resp BP Pulse Ox 102.0 F H 26 H 117/56 L 92 01/30/19 17:26 01/30/19 17:01 01/30/19 17:01 01/30/19 17:01 - Laboratory Result Diagrams: 01/30/19 17:02 01/30/19 17:02 Laboratory results interpreted by me: 01/30/19 01/30/19 01/30/19 17:02 17:02 17:02 WBC 12.7 H RBC 3.61 L Hgb 10.8 L Hct 32.8 L RDW 16.3 H VBG pH 7.53 H VBG pCO2 33.2 L Sodium 136.4 L Potassium 3.3 L Glucose 56 L POC Glucose Calcium 7.9 L Total Protein 5.2 L Albumin 2.8 L 01/30/19 17:46 WBC RBC Hgb Hct RDW VBG pH VBG pCO2 Sodium Potassium Glucose POC Glucose 62 L Calcium Total Protein Albumin - EKG Interpretation by Me Additional EKG results interpreted by me: 01/30/19 17:17 interpreted by myself: [id number]: sinus tachycardia, rate 104, PVCs, RBBB, LAFB, no STEMI Discharge - Discharge Clinical Impression: Severe sepsis, Hypoglycemia, Heart murmur Condition: Stable Disposition: ADMITTED INPATIENT Admitting Provider: Dior (Hospitalist) Unit Admitted: Telemetry
[2019-01-30 17:25] LABS: ABSOLUTE BASOPHILS # (AUTO) 0.1 10^3/uL (0.0-0.2); ABSOLUTE LYMPHOCYTES (AUTO) 3.3 10^3/uL (0.5-4.7); ABSOLUTE MONOCYTES (AUTO) 1.2 10^3/uL (0.1-1.4); ABSOLUTE NEUT (AUTO) 8.1 10^3/uL (1.7-8.2); BASOPHILS % (AUTO) 0.9 % (0-2); EOSINOPHILS % (AUTO) 0.2 % (0-6); HEMATOCRIT 32.8 % (37.9-51.0); HEMOGLOBIN 10.8 g/dL (13.5-17.0); MEAN CORPUSCULAR VOLUME 91 fl (80-97); MONOCYTES % (AUTO) 9.1 % (3-13); PLATELET COUNT 175 10^3/uL (150-450); RED BLOOD COUNT 3.61 10^6/uL (4.35-5.55); RED CELL DISTRIBUTION WIDTH 16.3 % (11.5-14.0); SEGMENTED NEUTROPHILS % (AUTO) 63.8 % (42-78); TOTAL CELLS COUNTED % (AUTO) 100 %; VENOUS BLOOD BASE EXCESS 4.6 mmol/L; VENOUS BLOOD HCO3 27.1 mmol/L (20-32); VENOUS BLOOD PCO2 33.2 mmHg (35-63); VENOUS BLOOD PH 7.53 (7.30-7.42); WHITE BLOOD COUNT 12.7 10^3/uL (4.0-10.5)
[2019-01-30 17:32] LABS: INTERNATIONAL RATION (INR) 0.94; PROTHROMBIN TIME 13.1 SEC (11.4-15.4)
[2019-01-30 17:45] LABS: ALANINE AMINOTRANSFERASE 41 U/L (21-72); ALBUMIN 2.8 g/dL (3.5-5.0); ALKALINE PHOSPHATASE 70 U/L (38-126); ANION GAP 5 (5-19); ASPARTATE AMINO TRANSFERASE 26 U/L (17-59); BILIRUBIN,DIRECT 0.2 mg/dL (0.0-0.4); BILIRUBIN,TOTAL 0.4 mg/dL (0.2-1.3); BLOOD UREA NITROGEN 13 mg/dL (7-20); CALCIUM 7.9 mg/dL (8.4-10.2); CARBON DIOXIDE 28 mmol/L (22-30); CHLORIDE 103 mmol/L (98-107); POTASSIUM 3.3 mmol/L (3.6-5.0); SODIUM 136.4 mmol/L (137-145); TOTAL PROTEIN 5.2 g/dL (6.3-8.2)
[2019-01-30 17:49] LABS: GLUCOSE 56 mg/dL (75-110)
--- NOTE | 2019-01-30 17:49 | RADIOLOGY REPORT (SQ) ---
EXAM DESCRIPTION: CHEST SINGLE VIEW COMPLETED DATE/TIME: 01/30/2019 5:26 pm REASON FOR STUDY: fever COMPARISON: 01/12/2019 TECHNIQUE: Single frontal radiographic view of the chest acquired. NUMBER OF VIEWS: One view. LIMITATIONS: None. FINDINGS: LUNGS AND PLEURA: No pneumothorax. No consolidation or pleural effusion. MEDIASTINUM AND HILAR STRUCTURES: Stable. HEART AND VASCULAR STRUCTURES: Stable. BONES: No acute findings. HARDWARE: None in the chest. OTHER: No other significant finding. IMPRESSION: NO ACUTE FINDINGS. TECHNICAL DOCUMENTATION: JOB ID: [id number] [place]-72 2010 [employer]- All Rights Reserved Reading location - IP/workstation name: [email or web address]
[2019-01-30] MEDS ORDERED: CEFTRIAXONE INJ 1000 MG VIAL IV ONE (17:51)
[2019-01-30 17:55] LABS: APPEARANCE,URINE CLEAR; BILIRUBIN,URINE NEGATIVE (NEGATIVE); COLOR,URINE YELLOW; GLUCOSE, URINE NEGATIVE (NEGATIVE); KETONES,URINE NEGATIVE (NEGATIVE); LEUKOCYTE ESTERASE,URINE NEGATIVE (NEGATIVE); NITRITE,URINE NEGATIVE (NEGATIVE); PROTEIN,URINE NEGATIVE (NEGATIVE); UROBILINOGEN,URINE NEGATIVE mg/dL (<2.0)
[2019-01-30] MEDS ORDERED: PIPERACILLIN/TAZOBACTAM 3.375 GM VIAL IV ONE (17:59)
[2019-01-30] MEDS ORDERED: VANCOMYCIN HCL INJ 1000 MG VIAL IV ONE (17:59)
[2019-01-30] MEDS ORDERED: DEXTROSE 50%-WATER 25 GM/50 ML DISP.SYRIN IV ONE (18:31)
[2019-01-30] MEDS ORDERED: GLUCAGON,HUMAN RECOMB 1 MG INJ IM PRN (18:35)
[2019-01-30] MEDS ORDERED: DEXTROSE 40% GEL 15 GM TUBE PO PRN ×2 (18:35)
[2019-01-30] MEDS ORDERED: DEXTROSE 50%-WATER 25 GM/50 ML DISP.SYRIN IV PRN ×2 (18:35)
[2019-01-30] MEDS ORDERED: VANCOMYCIN HCL 0 MG in DEXTROSE 5%-WATER 250 ML IV NR (18:45)
[2019-01-30] MEDS ORDERED: IPRATROPIUM/ALBUTEROL 0.5-2.5 MG/3 ML AMPUL NEB PRN (18:49)
--- NOTE | 2019-01-30 18:49 | PDOC H&P ---
History of Present Illness Admission Date/PCP: 01/30/19 18:11 Patient complains of: fever History of Present Illness: GIBSON MUNIZ is a 78 year old male past medical history of COPD, insulin- dependent diabetes mellitus, atrial fibrillation with prior ablation, on Xarelto, hyperlipidemia and congestive heart failure who presented with fever. Family including is at bedside. They are from [place]. Patient was reportedly apparently fine until yesterday when he was noted to be more sleepy and weak. He was increasingly weak earlier today and was having fevers at home. In the ER, he was noted to be febrile and was also hypoglycemic at 62. Upon encounter, he is slightly sleepy but is coherent and oriented. He is oriented to person, place and time. He denies any headache, neck pain or stiffness, cough, chest pain or shortness of breath. He denies abdominal pain. He denies lower urinary tract symptoms including dysuria, hematuria or urinary frequency. did say that he had loose stools yesterday but says that this is not unusual for him to have occasional loose stools. He has a loud systolic murmur on exam. says that he has been told that he has a murmur discovered several years ago. Patient did have a recent hospitali zation at [facility] last week. He says that he was there for a few days for COPD exacerbation and low hemoglobin. Past Medical History Cardiac Medical History: Reports: Atrial Fibrillation, Congestive Heart Failure, Hyperlipidema Pulmonary Medical History: Reports: Chronic Obstructive Pulmonary Disease (COPD) Endocrine Medical History: Reports: Diabetes Mellitus Type 2 Social History Smoking Status: Never Smoker Family History Family History: Reviewed & Not Pertinent Parental Family History Reviewed: Yes - No premature CAD Children Family History Reviewed: No Sibling(s) Family History Reviewed.: No Medication/Allergy Home Medications: Albuterol Sulfate [Proair HFA] 1 - 2 puff IH Q4 PRN 01/14/18 Arformoterol Tartrate [Brovana Inhalation Solution 15 mcg/2 mL] 1 puff IN DAILY 01/14/18 Escitalopram Oxalate [Lexapro] 5 mg PO DAILY 01/14/18 Furosemide [Lasix 20 mg Tablet] 20 mg PO DAILY 01/14/18 Glimepiride [Amaryl 4 mg Tablet] 4 mg PO DAILY 01/14/18 Hydrocodone/Acetaminophen [[place] 5-325 mg Tablet] 1 tab PO TID PRN 4 Days #12 tablet 01/14/18 Levothyroxine Sodium [Levo-T] 75 mcg PO DAILY 01/14/18 Metformin HCl 500 mg PO DAILY 01/14/18 Omeprazole 20 mg PO DAILY 01/14/18 Ondansetron HCl [Zofran 4 mg Tablet] 1 - 2 tab PO Q4H PRN #10 tablet 01/14/18 Prednisone 2.5 tab PO DAILY 01/14/18 Simvastatin [Zocor 40 mg Tablet] 40 mg PO DAILY 01/14/18 Tamsulosin HCl 0.4 mg PO DAILY PRN 01/14/18 Tamsulosin HCl [Flomax 0.4 mg Cap.sr] 0.4 mg PO DAILY #7 cap.sr.24h 01/14/18 Allergies/Adverse Reactions: metoprolol Allergy (Verified 01/12/19 14:03) moxifloxacin [From Avelox] Allergy (Verified 01/12/19 14:03) ofloxacin [From Floxin] Allergy (Verified 01/12/19 14:03) Quinolones Allergy (Verified 01/12/19 14:03) Sulfa (Sulfonamide Antibiotics) Allergy (Verified 01/12/19 14:03) sormotelol fumarate Allergy (Uncoded 01/12/19 14:03) Review of Systems All systems: reviewed and no additional remarkable complaints except as stated - As mentioned in HPI Physical Exam Vital Signs: Temp Pulse Resp BP Pulse Ox 102.0 F H 26 H 117/56 L 92 01/30/19 17:26 01/30/19 17:01 01/30/19 17:01 01/30/19 17:01 Intake & Output 01/29/19 01/30/19 01/31/19 06:59 06:59 06:59 Weight 175 lb 7.807 oz General appearance: PRESENT: no acute distress, well-developed, well-nourished Head exam: PRESENT: atraumatic, normocephalic Eye exam: PRESENT: conjunctiva pink, EOMI, PERRLA. ABSENT: scleral icterus Ear exam: PRESENT: normal external ear exam Mouth exam: PRESENT: moist, tongue midline Neck exam: ABSENT: carotid bruit, JVD, lymphadenopathy, thyromegaly Respiratory exam: PRESENT: clear to auscultation hans. ABSENT: rales, rhonchi, wheezes Cardiovascular exam: PRESENT: RRR, systolic murmur. ABSENT: rubs Pulses: PRESENT: normal dorsalis pedis pul GI/Abdominal exam: PRESENT: normal bowel sounds, soft. ABSENT: distended, guarding, mass, organolmegaly, rebound, tenderness Rectal exam: PRESENT: deferred Extremities exam: PRESENT: full ROM. ABSENT: calf tenderness, clubbing, pedal edema Neurological exam: PRESENT: alert, awake, oriented to person, oriented to place, oriented to time, CN II-XII grossly intact. ABSENT: motor sensory deficit Results Laboratory Results: 01/30/19 17:02 01/30/19 17:02 01/30/19 01/30/19 01/30/19 17:02 17:02 17:02 WBC 12.7 H RBC 3.61 L Hgb 10.8 L Hct 32.8 L MCV 91 MCH 30.0 MCHC 33.0 RDW 16.3 H Plt Count 175 Seg Neutrophils % 63.8 Lymphocytes % 26.0 Monocytes % 9.1 Eosinophils % 0.2 Basophils % 0.9 Absolute Neutrophils 8.1 Absolute Lymphocytes 3.3 Absolute Monocytes 1.2 Absolute Eosinophils 0.0 Absolute Basophils 0.1 VBG pH VBG pCO2 VBG HCO3 VBG Base Excess Sodium 136.4 L Potassium 3.3 L Chloride 103 Carbon Dioxide 28 Anion Gap 5 BUN 13 Creatinine 0.92 Est GFR ( Amer) > 60 Est GFR (Non-Af Amer) > 60 Glucose 56 L Lactic Acid 2.1 Calcium 7.9 L Total Bilirubin 0.4 AST 26 ALT 41 Alkaline Phosphatase 70 Total Protein 5.2 L Albumin 2.8 L Urine Color Urine Appearance Urine pH Ur Specific Bradley Urine Protein Urine Glucose (UA) Urine Ketones Urine Blood Urine Nitrite Ur Leukocyte Esterase Urine WBC (Auto) Urine RBC (Auto) 01/30/19 01/30/19 17:02 17:12 WBC RBC Hgb Hct MCV MCH MCHC RDW Plt Count Seg Neutrophils % Lymphocytes % Monocytes % Eosinophils % Basophils % Absolute Neutrophils Absolute Lymphocytes Absolute Monocytes Absolute Eosinophils Absolute Basophils VBG pH 7.53 H VBG pCO2 33.2 L VBG HCO3 27.1 VBG Base Excess 4.6 Sodium Potassium Chloride Carbon Dioxide Anion Gap BUN Creatinine Est GFR ( Amer) Est GFR (Non-Af Amer) Glucose Lactic Acid Calcium Total Bilirubin AST ALT Alkaline Phosphatase Total Protein Albumin Urine Color YELLOW Urine Appearance CLEAR Urine pH 6.0 Ur Specific Bradley 1.010 Urine Protein NEGATIVE Urine Glucose (UA) NEGATIVE Urine Ketones NEGATIVE Urine Blood NEGATIVE Urine Nitrite NEGATIVE Ur Leukocyte Esterase NEGATIVE Urine WBC (Auto) 1 Urine RBC (Auto) 1 Impressions: Chest X-Ray 01/30/19 16:51 IMPRESSION: NO ACUTE FINDINGS. Assessment and Plan - Diagnosis (1) Sepsis Is this a current diagnosis for this admission?: Yes Plan: Patient is presenting with high fever, leukocytosis and he is a little tachycardic and tachypneic. Definite focus is unclear at the moment. Chest x- ray is unrevealing. Urinalysis is also unremarkable. As mentioned, he does have a loud pansystolic murmur but as per family, he has been on to have a murmur for several years. Blood culture ordered. We will also pursue a CT of the abdomen and pelvis. Will start empirically with IV antibiotics. Will order a TTE to screen for vegetations. He was admitted in [place] last week for COPD exacerbation and low hemoglobin. Discussed with the ER staff to request hospital records from [facility]. (2) Hypokalemia Is this a current diagnosis for this admission?: Yes Plan: Replace with 60 meqs of p.o. potassium. (3) CHF (congestive heart failure) Is this a current diagnosis for this admission?: Yes Plan: Does not appear to be in acute exacerbation. Request records from [facility]. Resume home meds once verified. (4) COPD (chronic obstructive pulmonary disease) Is this a current diagnosis for this admission?: Yes Plan: Breathing treatments as needed. (5) DM type 2 (diabetes mellitus, type 2) Is this a current diagnosis for this admission?: Yes Plan: Accu-Cheks. Sliding scale for now. Check A1c. (6) Heart murmur Is this a current diagnosis for this admission?: Yes Plan: As per #1. (7) Hypoglycemia Is this a current diagnosis for this admission?: Yes Plan: Give D50. Hypoglycemia protocol. - Time Time Spent with patient: 25-34 minutes
--- NOTE | 2019-01-30 18:51 | ADVANCED CARE ---
- Diagnosis (1) Sepsis Diagnosis Current: Yes (2) CHF (congestive heart failure) Diagnosis Current: Yes (3) COPD (chronic obstructive pulmonary disease) Diagnosis Current: Yes (4) DM type 2 (diabetes mellitus, type 2) Diagnosis Current: Yes (5) Heart murmur Diagnosis Current: Yes (6) Hypokalemia Diagnosis Current: Yes Resuscitation Status: Full Code Discussion: Discussed with patient and at bedside. Patient is a full code and prefers chest compressions, defibrillation and mechanical ventilation if the need arises. Her surrogate medical decision maker is her , Macy.
[2019-01-30] MEDS ORDERED: POTASSIUM CHLORIDE 10 MEQ CAPSULE.ER PO ONE (19:30)
--- NOTE | 2019-01-30 20:03 | RADIOLOGY REPORT (SQ) ---
EXAM DESCRIPTION: CT ABDOMEN PELVIS WITHOUT IV CONTRAST COMPLETED DATE/TME: 01/30/2019 18:36 CLINICAL HISTORY: 78 years, Male, fever of unknown origin COMPARISON: 01/14/2018 CT TECHNIQUE: 319 Images stored on PACS. All CT scanners at this facility use dose modulation, iterative reconstruction, and/or weight based dosing when appropriate to reduce radiation dose to as low as reasonably achievable (ALARA). [facility]: Dose Right [facility]: CareDose [facility]: Dose Right [facility]: Teradose 4D [facility]: [employer] LIMITATIONS: None. FINDINGS: Limited evaluation of the lung bases demonstrates pleural thickening in each lung base, worse on the right. Osseous structures of the abdomen/pelvis are grossly intact. The liver, spleen, adrenal glands, pancreas are grossly unremarkable. The gallbladder is present. 15 x 16 mm left renal cyst. Punctate nonobstructing 2 mm right renal calculi. No obstructing calculus or hydronephrosis. Normal appendix. No gross evidence for bowel obstruction. Large amount of stool in the colon. No free air or free fluid. Surgical clips in the pelvis. Fat-containing left inguinal hernia. Mild atheromatous change IMPRESSION: Punctate nonobstructing right renal calculi. No obstructing calculus or hydronephrosis. Abundant stool in the colon. TECHNICAL DOCUMENTATION: Quality ID # [id number]: Final reports with documentation of one or more dose reduction techniques (e.g., Automated exposure control, adjustment of the mA and/or kV according to patient size, use of iterative reconstruction technique) copyright 2011 [employer]- All Rights Reserved
[2019-01-30] MEDS ORDERED: VANCOMYCIN HCL INJ 1000 MG VIAL ONE (20:09)
--- NOTE | 2019-01-30 22:53 | EKG REPORT ---
SEVERITY:- ABNORMAL ECG - SINUS TACHYCARDIA MULTIPLE VENTRICULAR PREMATURE COMPLEXES RBBB AND LAFB : Confirmed by: Suzanna Galicia 30-Jan-2019 22:52:12
[2019-01-30] MEDS: HEPARIN SOD (PORCINE) 5,000 UNIT/ML 1 ML SYRINGE SUBCUT SCH (23:39)
[2019-01-30] MEDS: INSULIN LISPRO 100 UNIT/ML 3 ML VIAL SUBCUT SCH (23:39)
[2019-01-31] MEDS: HEPARIN SOD (PORCINE) 5,000 UNIT/ML 1 ML SYRINGE SUBCUT SCH ×3 (05:23→22:10)
[2019-01-31] MEDS: INSULIN LISPRO 100 UNIT/ML 3 ML VIAL SUBCUT SCH ×4 (08:00→22:13)
[2019-01-31] MEDS ORDERED: CEFTRIAXONE 1 GM/D5W RTU 1 GM/50 ML RTUPB IV SCH (10:00)
[2019-01-31] MEDS: VANCOMYCIN HCL 1,000 MG in DEXTROSE 5%-WATER 250 ML IV SCH ×2 (10:22→22:12)
[2019-01-31] MEDS ORDERED: BISACODYL 10 MG SUPP.RECT PR PRN (14:47)
[2019-01-31] MEDS ORDERED: BISACODYL 5 MG TABEC PO PRN (14:47)
[2019-01-31 16:02] LABS: ANION GAP 5 (5-19); BLOOD UREA NITROGEN 11 mg/dL (7-20); CALCIUM 7.8 mg/dL (8.4-10.2); CARBON DIOXIDE 26 mmol/L (22-30); CHLORIDE 103 mmol/L (98-107); GLUCOSE 160 mg/dL (75-110); POTASSIUM 4.1 mmol/L (3.6-5.0); SODIUM 134.3 mmol/L (137-145)
[2019-01-31] MEDS ORDERED: RIVAROXABAN 10 MG TABLET PO SCH (18:00)
[2019-01-31] MEDS ORDERED: CEFTRIAXONE SODIUM 1,000 MG in DEXTROSE 5%-WATER 50 ML IV SCH (18:00)
[2019-01-31] MEDS: METFORMIN HCL 500 MG TABLET PO SCH (18:35)
[2019-01-31] MEDS ORDERED: SIMVASTATIN 40 MG TABLET PO SCH (22:00)
[2019-01-31] MEDS ORDERED: (PENDING PHARMACY ID) (Simvastatin [Zocor 80 Mg Tablet] 80 MG) PO SCH (22:00)
[2019-01-31] MEDS ORDERED: FLUTICASONE PROPIONATE HFA 110 MCG/PUFF 12 GM MDI IH SCH (22:00)
[2019-02-01] MEDS: HEPARIN SOD (PORCINE) 5,000 UNIT/ML 1 ML SYRINGE SUBCUT SCH (05:44)
[2019-02-01 06:31] LABS: HEMATOCRIT 32.9 % (37.9-51.0); MEAN CORPUSCULAR HEMOGLOBIN 30.5 pg (27.0-33.4); MEAN CORPUSCULAR HGB CONC 33.4 g/dL (32.0-36.0); MEAN CORPUSCULAR VOLUME 91 fl (80-97); PLATELET COUNT 150 10^3/uL (150-450); RED CELL DISTRIBUTION WIDTH 16.9 % (11.5-14.0)
[2019-02-01 06:43] LABS: ANION GAP 5 (5-19); BLOOD UREA NITROGEN 12 mg/dL (7-20); CALCIUM 7.9 mg/dL (8.4-10.2); CARBON DIOXIDE 27 mmol/L (22-30); CHLORIDE 100 mmol/L (98-107); GLUCOSE 174 mg/dL (75-110); POTASSIUM 4.1 mmol/L (3.6-5.0)
[2019-02-01] MEDS ORDERED: PROMETHAZINE HCL 25 MG TABLET PO ONE (07:48)
[2019-02-01] MEDS ORDERED: PROMETHAZINE HCL 25 MG TABLET PO PRN (07:48)
[2019-02-01] MEDS ORDERED: PANTOPRAZOLE SODIUM 40 MG TABLET.DR PO SCH (08:00)
[2019-02-01] MEDS ORDERED: MAGNESIUM OXIDE 400 MG TABLET PO ONE (08:30)
[2019-02-01 09:33] VITALS: BP 107/51
[2019-02-01] MEDS: METFORMIN HCL 500 MG TABLET PO SCH (09:37)
[2019-02-01] MEDS: INSULIN LISPRO 100 UNIT/ML 3 ML VIAL SUBCUT SCH (09:38)
[2019-02-01] MEDS ORDERED: POLYETHYLENE GLYCOL 3350 POWDER 17 GM/1 PACKET PO SCH (10:00)
[2019-02-01] MEDS ORDERED: GLIMEPIRIDE 4 MG TABLET PO SCH (10:00)
[2019-02-01] MEDS ORDERED: LEVOTHYROXINE SODIUM 0.075 MG TABLET PO SCH (10:00)
[2019-02-01] MEDS ORDERED: FUROSEMIDE 20 MG TABLET PO SCH (10:00)
[2019-02-01] MEDS ORDERED: ESCITALOPRAM OXALATE 10 MG TABLET PO SCH (10:00)
[2019-02-01] MEDS ORDERED: FERROUS SULFATE 325 MG TABLET PO SCH (10:00)
--- NOTE | 2019-02-01 17:55 | PDOC PROGRESS REPORT ---
Subjective Progress Note for:: 01/31/19 Subjective:: Patient is feeling better than yesterday. Breathing is easier. He does report that his hands get cold at times. It may difficult to get blood with a fingerstick. This, however, is a chronic issue. Reason For Visit: SEPSIS,FEVER OF UNCERTAIN ORIGIN Physical Exam Vital Signs: Temp Pulse Resp BP Pulse Ox 98.8 F 90 14 120/62 99 01/31/19 11:04 01/31/19 11:04 01/31/19 11:04 01/31/19 11:04 01/31/19 11:04 Intake & Output 01/30/19 01/31/19 02/01/19 06:59 06:59 06:59 Intake Total 1000 Balance 1000 Weight 67.3 kg General appearance: PRESENT: no acute distress, cooperative, well-developed Head exam: PRESENT: atraumatic, normocephalic Eye exam: PRESENT: conjunctiva pink Ear exam: PRESENT: normal external ear exam Mouth exam: PRESENT: moist, tongue midline Respiratory exam: PRESENT: clear to auscultation hans, symmetrical, unlabored. ABSENT: rales, rhonchi, tachypnea, wheezes Cardiovascular exam: PRESENT: RRR, +S1, +S2, systolic murmur, other - Occasional irregular beat GI/Abdominal exam: PRESENT: normal bowel sounds, soft. ABSENT: distended, guarding, tenderness Rectal exam: PRESENT: deferred Extremities exam: PRESENT: +1 edema. ABSENT: joint swelling Musculoskeletal exam: PRESENT: ambulatory, normal inspection Neurological exam: PRESENT: alert, awake, oriented to person, oriented to place, oriented to time, oriented to situation, CN II-XII grossly intact. ABSENT: motor sensory deficit Psychiatric exam: PRESENT: flat affect. ABSENT: agitated, anxious Focused psych exam: ABSENT: delusional, restlessness Skin exam: PRESENT: pallor - Pallor noted in the hands., other - Facial flushing noted during the visit. Results Laboratory Results: 01/30/19 17:02 01/30/19 01/30/19 01/30/19 17:02 17:02 17:02 WBC 12.7 H RBC 3.61 L Hgb 10.8 L Hct 32.8 L MCV 91 MCH 30.0 MCHC 33.0 RDW 16.3 H Plt Count 175 Seg Neutrophils % 63.8 Lymphocytes % 26.0 Monocytes % 9.1 Eosinophils % 0.2 Basophils % 0.9 Absolute Neutrophils 8.1 Absolute Lymphocytes 3.3 Absolute Monocytes 1.2 Absolute Eosinophils 0.0 Absolute Basophils 0.1 VBG pH VBG pCO2 VBG HCO3 VBG Base Excess Sodium 136.4 L Potassium 3.3 L Chloride 103 Carbon Dioxide 28 Anion Gap 5 BUN 13 Creatinine 0.92 Est GFR ( Amer) > 60 Est GFR (Non-Af Amer) > 60 Glucose 56 L Lactic Acid 2.1 Calcium 7.9 L Magnesium Total Bilirubin 0.4 AST 26 ALT 41 Alkaline Phosphatase 70 Total Protein 5.2 L Albumin 2.8 L TSH Urine Color Urine Appearance Urine pH Ur Specific [place] Urine Protein Urine Glucose (UA) Urine Ketones Urine Blood Urine Nitrite Ur Leukocyte Esterase Urine WBC (Auto) Urine RBC (Auto) 01/30/19 01/30/19 01/30/19 17:02 17:02 17:02 WBC RBC Hgb Hct MCV MCH MCHC RDW Plt Count Seg Neutrophils % Lymphocytes % Monocytes % Eosinophils % Basophils % Absolute Neutrophils Absolute Lymphocytes Absolute Monocytes Absolute Eosinophils Absolute Basophils VBG pH 7.53 H VBG pCO2 33.2 L VBG HCO3 27.1 VBG Base Excess 4.6 Sodium Potassium Chloride Carbon Dioxide Anion Gap BUN Creatinine Est GFR ( Amer) Est GFR (Non-Af Amer) Glucose Lactic Acid Calcium Magnesium 1.5 L Total Bilirubin AST ALT Alkaline Phosphatase Total Protein Albumin TSH 2.11 Urine Color Urine Appearance Urine pH Ur Specific [place] Urine Protein Urine Glucose (UA) Urine Ketones Urine Blood Urine Nitrite Ur Leukocyte Esterase Urine WBC (Auto) Urine RBC (Auto) 01/30/19 17:12 WBC RBC Hgb Hct MCV MCH MCHC RDW Plt Count Seg Neutrophils % Lymphocytes % Monocytes % Eosinophils % Basophils % Absolute Neutrophils Absolute Lymphocytes Absolute Monocytes Absolute Eosinophils Absolute Basophils VBG pH VBG pCO2 VBG HCO3 VBG Base Excess Sodium Potassium Chloride Carbon Dioxide Anion Gap BUN Creatinine Est GFR ( Amer) Est GFR (Non-Af Amer) Glucose Lactic Acid Calcium Magnesium Total Bilirubin AST ALT Alkaline Phosphatase Total Protein Albumin TSH Urine Color YELLOW Urine Appearance CLEAR Urine pH 6.0 Ur Specific [place] 1.010 Urine Protein NEGATIVE Urine Glucose (UA) NEGATIVE Urine Ketones NEGATIVE Urine Blood NEGATIVE Urine Nitrite NEGATIVE Ur Leukocyte Esterase NEGATIVE Urine WBC (Auto) 1 Urine RBC (Auto) 1 Impressions: Chest X-Ray 01/30/19 16:51 IMPRESSION: NO ACUTE FINDINGS. Abdomen/Pelvis CT 01/30/19 18:36 IMPRESSION: Punctate nonobstructing right renal calculi. No obstructing calculus or hydronephrosis. Abundant stool in the colon. TECHNICAL DOCUMENTATION: Quality ID # 436: Final reports with documentation of one or more dose reduction techniques (e.g., Automated exposure control, adjustment of the mA and/or kV according to patient size, use of iterative reconstruction technique) copyright 2011 [employer]- All Rights Reserved Assessment and Plan - Diagnosis (1) Sepsis Is this a current diagnosis for this admission?: Yes Plan: Patient is presenting with high fever, leukocytosis and he is a little tachycardic and tachypneic. Definite focus is unclear at the moment. Chest x- ray is unrevealing. Urinalysis is also unremarkable. As mentioned, he does have a loud pansystolic murmur but as per family, he has been on to have a murmur for several years. Blood culture ordered. We will also pursue a CT of the abdomen and pelvis. Will start empirically with IV antibiotics. Will order a TTE to screen for vegetations. He was admitted in [place] last week for COPD exacerbation and low hemoglobin. Discussed with the ER staff to request hospital records from [facility]. 02/01/2019-the patient is afebrile and his vital signs have improved. Cultures thus far negative however he was on antibiotic therapy at discharge from [facility]. He was on doxycycline and was still on it at the time of admission. This certainly would adversely affect cultures. A viral infection could certainly be in play at this time. (2) Hypokalemia Is this a current diagnosis for this admission?: Yes Plan: Replace with 60 meqs of p.o. potassium. 02/01/2019-serum potassium is now normal. We will continue to monitor. (3) CHF (congestive heart failure) Qualifiers: Heart failure chronicity: unspecified Is this a current diagnosis for this admission?: Yes Plan: Does not appear to be in acute exacerbation. Request records from [facility]. Resume home meds once verified. 02/01/2019-awaiting records from [facility]. The patient does not recall any specifics of an echocardiogram. We will continue his current medications at this time. (4) COPD (chronic obstructive pulmonary disease) Qualifiers: COPD type: unspecified COPD Qualified Code(s): J44.9 - Chronic obstructive pulmonary disease, unspecified Is this a current diagnosis for this admission?: Yes Plan: Breathing treatments as needed. 02/01/2019-the patient is on Qvar at home. He also takes prednisone 10 mg daily and he believes this is for his lungs. He does have inhalers available if needed. (5) DM type 2 (diabetes mellitus, type 2) Qualifiers: Diabetes mellitus terminal gauger supervisor insulin use: without terminal gauger supervisor use Is this a current diagnosis for this admission?: Yes Plan: Accu-Cheks. Sliding scale for now. Check A1c. 02/01/2019-the patient's Accu-Cheks have been variable and will be low (60) and then high (180). He has never been on insulin before. He believes it is related to his insulin. He is on metformin and glimepiride at home. Is not sure of the exact dose. I will hold his long-acting insulin. He will stay on sliding scale. I will resume his metformin and when the information is available, resume his glimepiride. (6) Heart murmur Is this a current diagnosis for this admission?: Yes Plan: As per #1. 02/01/2019-await records from [facility]. (7) Hypoglycemia Is this a current diagnosis for this admission?: Yes Plan: Give D50. Hypoglycemia protocol. 02/01/2019-as noted above the patient has never had hypoglycemia until he was on insulin. He is still showing variability and his Accu-Cheks. As noted above I am going to hold his long-acting insulin and resume his oral medications. - Time Time Spent with patient: 15-24 minutes Medications reviewed and adjusted accordingly: Yes Anticipated discharge: Home Within: within 48 hours
--- NOTE | 2019-02-01 18:09 | PDOC DISCHARGE SUMMARY ---
General - Admit/Disc Date/PCP Admission Date/Primary Care Provider: 01/30/19 18:11 Discharge Date: 02/01/19 - Discharge Diagnosis (1) Sepsis Is this a current diagnosis for this admission?: Yes Summary: All cultures are negative to this point. As noted yesterday he was on doxycycl ine prior to this admission and so cultures are likely to be no growth because of the antibiotic therapy. He did break his fever and improved significantly with the IV antibiotics and therefore I will give him Ceftin to take for another 5 days. He is leaving for [place] after February 09. His sepsis has resolved. (2) Hypokalemia Is this a current diagnosis for this admission?: Yes Summary: Potassium is currently remaining in the normal range. No additional potassium supplementation required. (3) CHF (congestive heart failure) Is this a current diagnosis for this admission?: Yes Summary: There was able to obtain the records from [facility]. He did have a transthoracic echocardiogram. Ejection fraction was greater than 65%. There was some evidence of left ventricular hypertrophy and it is likely that he has very mild diastolic dysfunction. We will continue his home medication regimen at this time as he has been stable during this hospitalization. (4) COPD (chronic obstructive pulmonary disease) Is this a current diagnosis for this admission?: Yes Summary: He did require occasional nebulizer treatment however he is stable and on room air. He will continue his prednisone as well as his Tudorza Pressair inhaler therapy. He does have all of his medications with him. (5) DM type 2 (diabetes mellitus, type 2) Is this a current diagnosis for this admission?: Yes Summary: His sugars are much better today. He will discharge on his old regimen of glimepiride 4 mg daily and metformin 1000 mg twice daily. I explained that I would rather have his sugars slightly higher (150-200) then experiencing hypoglycemic episodes while driving back to [place]. He is in agreement with this plan. (6) Heart murmur Is this a current diagnosis for this admission?: Yes Summary: Despite hearing a murmur on auscultation his transthoracic echocardiogram from a week ago shows grossly normal valve function. I will defer to the patient's physicians in [place] for further work-up. (7) Hypoglycemia Is this a current diagnosis for this admission?: Yes Summary: As noted above once patient was back on his normal regimen and taken off of the long-acting insulin his sugars stabilized. Hypoglycemia resolved. - Additional Information Resuscitation Status: Full Code Prescriptions: Cefuroxime Axetil [Ceftin 500 mg Tablet] 1 tab PO BID 5 Days #10 tablet Glimepiride [Amaryl 4 mg Tablet] 4 mg PO DAILY 14 Days #14 tablet Promethazine HCl [Phenergan 25 mg Tablet] 12.5 mg PO Q6HP PRN 5 Days #5 tablet PRN Reason: For Nausea/Vomiting Home Medications: Albuterol Sulfate [Proair HFA] 1 - 2 puff IH Q4 PRN 01/14/18 Furosemide [Lasix 20 mg Tablet] 20 mg PO DAILY 01/14/18 Hydrocodone/Acetaminophen [Shirley 5-325 mg Tablet] 1 tab PO TID PRN 4 Days #12 tablet 01/14/18 Levothyroxine Sodium [Levo-T] 75 mcg PO DAILY 01/14/18 Beclomethasone Dipropionate [Qvar] 1 inh IH BIDP PRN 01/30/19 Escitalopram Oxalate [Lexapro 10 mg Tablet] 10 mg PO DAILY 01/30/19 Ferrous Sulfate [Iron] 325 mg PO DAILY 01/30/19 Fluticasone Propionate [Flonase Nasal Henry 50 Mcg/Henry 16 gm] 2 spray NASL DAILY 01/30/19 Pantoprazole Sodium [Protonix [address] Tablet] 40 mg PO QAM 01/30/19 Prednisone 10 mg PO ASDIR PRN 01/30/19 Rivaroxaban [Xarelto] 20 mg PO QPM 01/30/19 Simvastatin [Zocor 80 mg Tablet] 80 mg PO QHS 01/30/19 Cefuroxime Axetil [Ceftin 500 mg Tablet] 1 tab PO BID 5 Days #10 tablet 02/01/19 Fluticasone Propionate [Flovent Hfa 110 Mcg Inhalation Aerosol 12 gm] 2 puff IH Q12 inhaler 02/01/19 Glimepiride [Amaryl 4 mg Tablet] 4 mg PO DAILY 14 Days #14 tablet 02/01/19 Magnesium Oxide [Mag-Ox 400 mg Tablet] 400 mg PO DAILY tablet 02/01/19 Metformin HCl [Glucophage 500 mg Tablet] 1,000 mg PO BIDACBS tablet 02/01/19 Promethazine HCl [Phenergan 25 mg Tablet] 12.5 mg PO Q6HP PRN 5 Days #5 tablet 02/01/19 History of Present Illness Patient complains of: Feeling poorly with high fever History of Present Illness: GIBSON MUNIZ is a 78 year old male who was just discharged from [facility] approximately 1 week ago. He was admitted there for possible pneumonia with exacerbation of COPD and congestive heart failure. Evidently his Accu-Cheks are elevated as well. Because of the initial high temperature and tachycardia patient was given fluids. He was cultured (blood and urine) and started on antibiotic therapy. He was referred to the hospital service for admission. Hospital Course Hospital Course: The patient actually had a fairly benign hospital course. Once the variance in his sugars was resolved by discontinuing long-acting insulin he felt much better. He did have the need for minimal nebulizer treatments and he will be discharged back on his own regimen of medications. There are some chronic issues such as his hands feeling cold, that he will proceed with his primary care physician because these are not new. The only changes in his regimen will be the addition of Ceftin for an additional 5 days and I did provide him with a prescription for Phenergan in the event that he has nausea while traveling. Physical Exam Vital Signs: Temp Pulse Resp BP Pulse Ox 100.0 F 97 18 139/56 H 94 02/01/19 05:12 02/01/19 07:00 02/01/19 05:12 02/01/19 05:12 02/01/19 05:12 Intake & Output 01/31/19 02/01/19 02/02/19 06:59 06:59 06:59 Intake Total 1000 2570 Balance 1000 2570 Weight 67.3 kg 67.8 kg General appearance: PRESENT: no acute distress, cooperative, well-developed Head exam: PRESENT: atraumatic, normocephalic Mouth exam: PRESENT: moist, tongue midline Respiratory exam: PRESENT: clear to auscultation hans, symmetrical, unlabored. ABSENT: chest wall tenderness, rales, rhonchi, tachypnea, wheezes Cardiovascular exam: PRESENT: RRR, +S1, +S2, systolic murmur - 2/6 GI/Abdominal exam: PRESENT: normal bowel sounds, soft. ABSENT: distended, tenderness Rectal exam: PRESENT: deferred Extremities exam: ABSENT: joint swelling, pedal edema Musculoskeletal exam: PRESENT: full ROM, normal inspection Neurological exam: PRESENT: alert, awake, oriented to person, oriented to place, oriented to time, oriented to situation, CN II-XII grossly intact Psychiatric exam: PRESENT: appropriate affect, normal mood. ABSENT: agitated, anxious Focused psych exam: ABSENT: delusional, restlessness Results Laboratory Results: 02/01/19 05:56 02/01/19 05:56 01/31/19 02/01/19 02/01/19 15:10 05:56 05:56 WBC 8.0 RBC 3.60 L Hgb 11.0 L Hct 32.9 L MCV 91 MCH 30.5 MCHC 33.4 RDW 16.9 H Plt Count 150 Sodium 134.3 L 132.0 L Potassium 4.1 4.1 Chloride 103 100 Carbon Dioxide 26 27 Anion Gap 5 5 BUN 11 12 Creatinine 0.98 1.00 Est GFR ( Amer) > 60 > 60 Est GFR (Non-Af Amer) > 60 > 60 Glucose 160 H 174 H Calcium 7.8 L 7.9 L Magnesium 1.7 1.5 L 01/30/19 17:12 Catheterized Urine Urine Culture - Final NO GROWTH 2 DAYS Impressions: Chest X-Ray 01/30/19 16:51 IMPRESSION: NO ACUTE FINDINGS. Abdomen/Pelvis CT 01/30/19 18:36 IMPRESSION: Punctate nonobstructing right renal calculi. No obstructing calculus or hydronephrosis. Abundant stool in the colon. TECHNICAL DOCUMENTATION: Quality ID # 436: Final reports with documentation of one or more dose reduction techniques (e.g., Automated exposure control, adjustment of the mA and/or kV according to patient size, use of iterative reconstruction technique) copyright 2011 [employer]- All Rights Reserved Qualifiers - * PATIENT BEING DISCHARGED WITH ANY OF THE FOLLOWING DIAGNOSIS: No Acute Heart Failure - Is this a Heart Failure Patient?: No Plan Discharge Plan: The patient will discharge today. He will return to [place] after 09 February to avoid heavy traffic. Time Spent: Greater than 30 Minutes
[2019-02-02] MEDS ORDERED: MAGNESIUM OXIDE 400 MG TABLET PO SCH (10:00)
--- NOTE | 2019-02-02 22:13 | XCELERA REPORT ---
[address] [address] Transthoracic Echocardiogram Report Name: GIBSON MUNIZ Age: 78 yrs Gender: Male : 1940 Patient Status: Inpatient Patient Location: [facility]^A Study Date: 01/31/2019 09:39 AM Height: 72 in Weight: 175 lb BSA: 2.0 m2 Procedure: A two-dimensional transthoracic echocardiogram with color flow and Doppler was performed. The study was technically difficult with many images being suboptimal in quality. Reason For Study: Valvular Vegetation History: Valvular Vegetation. Ordering Physician: RAMIREZ MCKENNA Performed By: Agata Polanco Interpretation Summary No defenite vegetations seen.Recommend DEE if clinical suspicion is high. The left ventricle is normal in size. The left ventricular ejection fraction is within normal limits. LV EF is 65% Doppler measurements suggest normal left ventricular diastolic function The left ventricular wall motion is normal. There is no thrombus. Probbly no ASD , VSD ., or PFO seen. The right ventricle is not well visualized secondary to technical limitations The right atrium is normal. The left atrium is mildly dilated. There is no evidence of mitral valve prolapse. There is no vegetation seen on the mitral valve. There is no mitral valve stenosis. Eccentric posteriorly directed moderate MR jet. There is no aortic valvular vegetation. There is no aortic valve stenosis There is no LVOT obstruction. There is a trace amount of aortic regurgitation There is no tricuspid stenosis. There is a trace amount of tricuspid regurgitation Right ventricular systolic pressure is normal. RVSP is 18 to 23 mm of Hg , with RA mean of to 10. There is no pulmonic valvular stenosis. There is no pulmonic valvular regurgitation. The aortic root is normal size. The inferior vena cava appeared normal and decreased > 50% with respiration (RAP 5-10 mmHg) There is no pericardial effusion. No defenite vegetations seen.Recommend DEE if clinical suspicion is high. MMode/2D Measurements & Calculations RVDd: 3.4 cm LVIDd: 5.6 cm FS: 38.8 % Ao root diam: 3.5 cm IVSd: 1.1 cm LVIDs: 3.5 cm EDV(Teich): LVPWd: 1.1 cm 156.6 ml Ao root area: ESV(Teich): 49.3 ml9.7 cm2 EF(Teich): 68.5 % EDV(MOD-sp4): SV(MOD-sp4): 98.9 ml 62.7 ml ESV(MOD-sp4): 36.1 ml EF(MOD-sp4): 63.5 % Doppler Measurements & Calculations MV E max stacey: MV dec slope: Ao V2 max: AI max stacey: 89.3 cm/sec 192.2 cm/sec 340.5 cm/sec MV A max stacey: 514.5 cm/sec2 Ao max PG: AI max P.4 mmHg 66.9 cm/sec MV dec time: 14.8 mmHg AI dec slope: MV E/A: 1.3 0.17 sec 211.0 cm/sec2 AI P1/2t: 472.7 msec LV V1 max PG: PA V2 max: TR max stacey: 9.6 mmHg 98.0 cm/sec 182.2 cm/sec LV V1 max: PA max P.8 mmHg TR max P.8 cm/sec 13.3 mmHg LV dP/dt: 2228 mmHg/s Left Ventricle The left ventricle is normal in size. There is normal left ventricular wall thickness. The left ventricular ejection fraction is within normal limits. LV EF is 65%. Doppler measurements suggest normal left ventricular diastolic function. The left ventricular wall motion is normal. There is no thrombus. Probbly no ASD , VSD ., or PFO seen. Right Ventricle The right ventricle is not well visualized secondary to technical limitations. Atria The right atrium is normal. The left atrium is mildly dilated. Mitral Valve There is no evidence of mitral valve prolapse. There is no vegetation seen on the mitral valve. There is no mitral valve stenosis. Eccentric posteriorly directed moderate MR jet. Aortic Valve There is no aortic valvular vegetation. There is no aortic valve stenosis. There is no LVOT obstruction. There is a trace amount of aortic regurgitation. Tricuspid Valve There is no tricuspid stenosis. There is a trace amount of tricuspid regurgitation. Right ventricular systolic pressure is normal. RVSP is 18 to 23 mm of Hg , with RA mean of to 10. Pulmonic Valve There is no pulmonic valvular stenosis. There is no pulmonic valvular regurgitation. Great Vessels The aortic root is normal size. The inferior vena cava appeared normal and decreased > 50% with respiration (RAP 5-10 mmHg). Effusions There is no pericardial effusion. : RAMIREZ MCKENNA > Sheila Hurst
== END 2019-02-01 09:48 | disposition home or self-care (01) ==
LOC: ER 16:40 → INTOOBSV 18:11 → EH 18:11 → 5 21:10
PROVIDERS: ADMIT Internal Medicine; ATTEND Internal Medicine
DX: A41.9 Sepsis, unspecified organism (principal); E87.6 Hypokalemia; J44.9 Chronic obstructive pulmonary disease, unspecified; E11.9 Type 2 diabetes mellitus without complications; R01.1 Cardiac murmur, unspecified; E11.649 Type 2 diabetes mellitus with hypoglycemia without coma; Z79.84 Long term (current) use of oral hypoglycemic drugs; D50.8 Other iron deficiency anemias; I50.9 Heart failure, unspecified; I48.91 Unspecified atrial fibrillation; E78.5 Hyperlipidemia, unspecified; Z79.899 Other long term (current) drug therapy; Z88.2 Allergy status to sulfonamides; Z88.8 Allergy status to other drugs, medicaments and biological substances
CPT/HCPCS: 93005; 99285; 96360; 36415 ×3; 87040; 87086; 82962 ×3; 83735 ×3; 84443; 85025; 85027; 85610; 80048 ×2; 80053; 81001; 83036; 82803; 83605; 93306; 71045; 74176; 93010; 94640; G0378 ×4; A9270 ×9; J1644; J0696; J3490 ×2; J7060 ×2; J7030; J3370 ×2; J2543; J1815; J7620